=== PATIENT | female | born 1950 | race Two or more races ===

== ENCOUNTER 2020-05-31 22:47 | Inpatient (IN) | payer OTHER ==
[~2020-05-31] VITALS: Ht 162.6 cm; Wt 119.0 kg
[2020-05-31] MEDS ORDERED: ASPIRIN 81 MG TABLET CHEW PO ONE (23:00)
[2020-05-31 23:22] LABS: BASOPHILS % (AUTO) 0 % (0-1); EOSINOPHILS # (AUTO) 0.32 x10^3/uL (0-0.4); EOSINOPHILS % (AUTO) 3 % (1-7); LYMPHOCYTES # (AUTO) 0.99 x10^3/uL (1-3.4); LYMPHOCYTES % (AUTO) 9 % (22-44); MD NO; MEAN CORPUSCULAR HEMOGLOBIN 24.6 pg (27.0-34.8); MEAN CORPUSCULAR HGB CONC 31.5 g/dL (32.4-35.8); MEAN CORPUSCULAR VOLUME 78.2 fL (80-100); MEAN PLATELET VOLUME 7.9 fL (7.4-10.4); MONOCYTES # (AUTO) 0.52 x10^3/uL (0.2-0.8); MONOCYTES % (AUTO) 5 % (2-9); NEUTROPHILS # (AUTO) 9.35 x10^3/uL (1.8-6.8); NEUTROPHILS % (AUTO) 84 % (42-75); PLATELET COUNT 267 x10^3/uL (130-400); RED CELL DISTRIBUTION WIDTH 16.9 % (9.6-15.2)
[2020-05-31] MEDS ORDERED: PLEASE ENTER ALLERGIES MC SCH (23:30)
[2020-05-31 23:32] LABS: ALBUMIN 4.1 g/dL (3.4-5.0); ANION GAP 6 mmol/L (5-15); CALCIUM 8.7 mg/dL (8.5-10.1); CHLORIDE 109 mmol/L (98-107); CREATININE 1.52 mg/dL (0.55-1.02)
[2020-05-31] MEDS ORDERED: ASPIRIN 81 MG TABLET CHEW ONE (23:34)
[2020-05-31 23:36] LABS: TROPONIN I < 0.015 ng/mL (0.000-0.045)
[2020-06-01] MEDS ORDERED: FUROSEMIDE 40 MG/4 ML IV ONE (00:30)
[2020-06-01] MEDS ORDERED: FUROSEMIDE 40 MG/4 ML ONE (00:47)
--- NOTE | 2020-06-01 01:05 | NUR ---
Bedside commode placed in pt's room.
--- NOTE | 2020-06-01 01:31 | NUR ---
Pt report given to Aditi QUINTANA Tele.
[2020-06-01 02:09] VITALS: BP 148/78
[2020-06-01] MEDS ORDERED: CITA20TA6 PO (02:13)
[2020-06-01] MEDS ORDERED: AMLO-150 PO (02:13)
[2020-06-01] MEDS ORDERED: ACET-1600 PO (02:13)
[2020-06-01] MEDS ORDERED: FLUT1DIS3 INH (02:13)
[2020-06-01] MEDS ORDERED: IBUP-1221 PO (02:13)
[2020-06-01] MEDS ORDERED: METO25TA35 PO (02:13)
[2020-06-01] MEDS ORDERED: TURM500C7 PO (02:13)
[2020-06-01] MEDS ORDERED: LOVA40TA2 PO (02:13)
[2020-06-01] MEDS ORDERED: ASPI81TA45 PO (02:13)
[2020-06-01] MEDS ORDERED: TIOT18CA INH (02:13)
[2020-06-01] MEDS ORDERED: FAMO20TA7 PO (02:13)
[2020-06-01] MEDS ORDERED: DOCUSATE 100 MG CAPSULE PO PRN (02:30)
[2020-06-01] MEDS ORDERED: ACETAMINOPHEN 325 MG TABLET PO PRN (02:30)
[2020-06-01] MEDS ORDERED: ASA/APAP/ CAFFEINE TABLET PO PRN (02:30)
[2020-06-01] MEDS ORDERED: METHOCARBAMOL 500 MG TABLET PO PRN (02:30)
[2020-06-01] MEDS ORDERED: ACETAMINOPHEN 500 MG TABLET PO PRN (02:30)
[2020-06-01] MEDS ORDERED: hydrALAzine 20 MG/ML, 1ML IVPush PRN (02:30)
[2020-06-01] MEDS ORDERED: ALBUTEROL/IPRATROPIUM 2.5MG/0.5MG, 3 ML NEB PRN (02:30)
[2020-06-01] MEDS ORDERED: IBUPROFEN 800 MG TABLET PO PRN (02:30)
[2020-06-01] MEDS ORDERED: ENOXAPARIN 40 MG/0.4 ML SQ SCH (02:30)
[2020-06-01] MEDS ORDERED: TEMAZEPAM 15 MG CAPSULE PO PRN (02:30)
[2020-06-01] MEDS ORDERED: ONDANSETRON 2MG/ML, 2ML IVPush PRN (02:30)
[2020-06-01] MEDS ORDERED: morphine SULFATE 10 MG/ML, 1ML IVPush PRN (02:30)
[2020-06-01] MEDS ORDERED: GUAIFENESIN/DM 200-20MG, 10ML UDC PO PRN (02:30)
[2020-06-01] MEDS: HYDROcodone/APAP 5/325 TABLET PO PRN ×3 (04:51→20:53)
[2020-06-01] MEDS ORDERED: [UNRECOGNIZED DRUG - OTHER] PO SCH (08:00)
[2020-06-01] MEDS ORDERED: TURMERIC PO SCH (08:00)
[2020-06-01] MEDS ORDERED: TURMERIC ROOT EXTRACT PO SCH (08:00)
[2020-06-01 08:03] VITALS: BP 157/69
[2020-06-01] MEDS: TIOTROPIUM BROMIDE 18 MCG/INH INH SCH (09:58)
[2020-06-01] MEDS: FLUTICASONE/VILANTEROL 100-25MCG/INH INH SCH (09:58)
[2020-06-01] MEDS: ASPIRIN 81 MG TABLET EC PO SCH (09:58)
[2020-06-01] MEDS: FUROSEMIDE 40 MG/4 ML IV SCH ×2 (09:58→17:18)
[2020-06-01] MEDS: CITALOPRAM 20 MG TABLET PO SCH (09:58)
[2020-06-01] MEDS: AMLODIPINE 5 MG TABLET PO SCH (09:59)
[2020-06-01] MEDS: FAMOTIDINE 40 MG TABLET PO SCH (09:59)
[2020-06-01] MEDS: METOPROLOL TARTRATE 25 MG TAB PO SCH ×2 (09:59→20:53)
[2020-06-01 12:17] VITALS: BP 146/70
[2020-06-01 19:32] VITALS: BP 130/54
[2020-06-01] MEDS ORDERED: LOVASTATIN 40 MG TABLET PO SCH (21:00)
[2020-06-02 00:49] VITALS: BP 125/65
[2020-06-02 05:42] LABS: CHLORIDE 105 mmol/L (98-107)
[2020-06-02 05:48] LABS: ANION GAP 8 mmol/L (5-15); CALCIUM 8.6 mg/dL (8.5-10.1); CREATININE 1.28 mg/dL (0.55-1.02)
[2020-06-02 05:55] LABS: BASOPHILS # (AUTO) 0.02 x10^3/uL (0-0.1); BASOPHILS % (AUTO) 0 % (0-1); EOSINOPHILS # (AUTO) 0.22 x10^3/uL (0-0.4); EOSINOPHILS % (AUTO) 4 % (1-7); LYMPHOCYTES # (AUTO) 1.18 x10^3/uL (1-3.4); LYMPHOCYTES % (AUTO) 19 % (22-44); MD NO; MEAN CORPUSCULAR HEMOGLOBIN 24.7 pg (27.0-34.8); MEAN CORPUSCULAR HGB CONC 31.7 g/dL (32.4-35.8); MEAN CORPUSCULAR VOLUME 77.8 fL (80-100); MEAN PLATELET VOLUME 8.4 fL (7.4-10.4); MONOCYTES # (AUTO) 0.56 x10^3/uL (0.2-0.8); MONOCYTES % (AUTO) 9 % (2-9); NEUTROPHILS # (AUTO) 4.23 x10^3/uL (1.8-6.8); NEUTROPHILS % (AUTO) 68 % (42-75); PLATELET COUNT 229 x10^3/uL (130-400); RED CELL DISTRIBUTION WIDTH 16.8 % (9.6-15.2)
[2020-06-02] MEDS ORDERED: ENOXAPARIN 30 MG/0.3 ML SQ SCH (06:00)
[2020-06-02 07:45] VITALS: BP 159/69
[2020-06-02] MEDS: CITALOPRAM 20 MG TABLET PO SCH (07:47)
[2020-06-02] MEDS: METOPROLOL TARTRATE 25 MG TAB PO SCH (07:47)
[2020-06-02] MEDS: FUROSEMIDE 40 MG/4 ML IV SCH (07:47)
[2020-06-02] MEDS: AMLODIPINE 5 MG TABLET PO SCH (07:48)
[2020-06-02] MEDS: FLUTICASONE/VILANTEROL 100-25MCG/INH INH SCH (07:48)
[2020-06-02] MEDS: ASPIRIN 81 MG TABLET EC PO SCH (07:48)
[2020-06-02] MEDS: FAMOTIDINE 40 MG TABLET PO SCH (07:48)
[2020-06-02] MEDS: TIOTROPIUM BROMIDE 18 MCG/INH INH SCH (07:49)
[2020-06-02] MEDS ORDERED: FURO40TA6 PO (12:35)
[2020-06-02 13:58] VITALS: BP 138/66
[2020-06-03] MEDS ORDERED: ENOXAPARIN 40 MG/0.4 ML SQ SCH (06:00)
== END 2020-06-02 17:46 | disposition home or self-care (01) | DRG 291 ==
LOC: ED 06-01 00:33 → EDIP 06-01 00:45 → 5SO 06-01 01:41
PROVIDERS: ADMIT Internal Medicine; ATTEND Internal Medicine
PROC: 5A09357 Assistance with Respiratory Ventilation, Less than 24 Consecutive Hours, Continuous Positive Airway Pressure (ICD-10-PCS; principal; 2020-06-02)
DX: I11.0 Hypertensive heart disease with heart failure (principal); J96.21 Acute and chronic respiratory failure with hypoxia; N17.9 Acute kidney failure, unspecified; Z68.42 Body mass index [BMI] 45.0-49.9, adult; D50.9 Iron deficiency anemia, unspecified; E66.01 Morbid (severe) obesity due to excess calories; E78.5 Hyperlipidemia, unspecified; I50.9 Heart failure, unspecified; J44.9 Chronic obstructive pulmonary disease, unspecified; F32.9 Major depressive disorder, single episode, unspecified; I25.2 Old myocardial infarction; Z82.5 Family history of asthma and other chronic lower respiratory diseases; Z87.891 Personal history of nicotine dependence; Z99.81 Dependence on supplemental oxygen
CPT/HCPCS: 36415; 71045; 80048; 82040; 83735; 83880; 84100; 84443; 84484; 85025; 93005; 93306; 96374; 99285; G0378; J1650; J1940